=== PATIENT | female | born 1980 | race Caucasian/White ===

== ENCOUNTER 2021-04-21 14:07 | Emergency (ER) | payer OTHER, MEDICAID ==
[~2021-04-21] VITALS: Ht 162.6 cm; Wt 68.0 kg
[2021-04-21] MEDS ORDERED: ADDERALL 10 MG10 MG PO (14:14)
[2021-04-21] MEDS ORDERED: ZESTRIL10 MG PO (14:14)
[2021-04-21] MEDS ORDERED: EFFEXOR XR37.5 MG PO (14:14)
[2021-04-21] MEDS ORDERED: TRAMADOL 50 MG50 MG PO (14:15)
[2021-04-21] MEDS ORDERED: NEURONTIN 300M300 M2 PO (14:15)
[2021-04-21] MEDS ORDERED: AMBIEN 10 MG TA10 MG PO (14:15)
[2021-04-21] MEDS ORDERED: VISTARIL50 MG PO (14:16)
[2021-04-21] MEDS ORDERED: ZOFRAN4 MG PO (14:16)
[2021-04-21] MEDS ORDERED: VITAMIN D250 MCG PO (14:16)
[2021-04-21 14:35] LABS: ABSOLUTE EOSINOPHILS 0.1 thou/uL (0.0-0.7); ABSOLUTE LYMPHOCYTES 1.9 thou/uL (0.8-5.3); ABSOLUTE MONOCYTES 0.4 thou/uL (0.0-1.2); BASOPHILS 0.8 %; HEMATOCRIT 40.3 % (37.0-47.0); HEMOGLOBIN 13.8 gm/dL (12.0-15.0); LYMPHOCYTES 34.9 %; MCH 29.9 pg (26.0-34.0); MCHC 34.1 g/dL (28.0-37.0); MCV 87.7 fL (80.0-100.0); MONOCYTES 7.6 %; MPV 7.8 fl. (7.2-11.1); NUCLEATED RBCS 0 /100WBC; PLATELET COUNT* 269 thou/uL (150-400); POLYS 55.7 %; RDW-CV 13.2 % (10.5-14.5); WBC 5.5 thou/uL (4.0-11.0)
[2021-04-21 14:44] LABS: CALCIUM 8.5 mg/dL (8.5-10.1); CREATININE 0.9 mg/dL (0.6-1.3); POTASSIUM 4.1 mmol/L (3.5-5.1)
[2021-04-21 14:49] LABS: ALBUMIN 3.8 g/dL (3.4-5.0); TOTAL BILIRUBIN 0.8 mg/dL (<0.1-1.0); TOTAL PROTEIN 6.5 g/dL (6.4-8.2)
--- NOTE | 2021-04-21 15:31 | EKG ---
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
[2021-04-21] MEDS ORDERED: PREDNISONE 10 M10 MG PO (15:34)
[2021-04-21] MEDS ORDERED: NORFLEX100 MG PO (15:34)
[2021-04-21] MEDS ORDERED: HYDROCODON-ACE1 EAC7 PO (15:35)
[2021-04-21 15:55] VITALS: BP 125/84
== END 2021-04-21 15:55 | disposition home or self-care (01) ==
LOC: M.ERS 14:07
PROVIDERS: Nurse Practitioner Family
DX: R52 Pain, unspecified (principal); I10 Essential (primary) hypertension; Z90.710 Acquired absence of both cervix and uterus